=== PATIENT | female | born 1995 | race Caucasian/White ===

== ENCOUNTER 2020-09-21 16:54 | Emergency (ER) | payer OTHER, SELFPAY ==
--- NOTE | ~2020-09-21 | XR_ITS ---
EXAMINATION: XR foot LT min 3V EXAM DATE: 09/21/2020 17:51 INDICATION: Inversion injury, left metatarsal pain. Initial encounter. TECHNIQUE: Left foot dorsoplantar, lateral and oblique projections obtained and reviewed. There is n o prior study for comparison. FINDINGS: Tiny sliver-like density at the base of the left 5th metatarsal bone, age-indeterminate avu lsion injury. Please check for point tenderness. IMPRESSION: Age-indeterminate tiny left 5th metatarsal base avulsion. Reviewed, dictated and finalized at location A.
[2020-09-21 17:25] VITALS: BP 124/71; PULSE 95; RESP 18; TEMP 37; O2SAT 99
--- NOTE | 2020-09-21 18:29 | ED.GENADULT ---
HPI - General Adult General Chief complaint: Extremity Injury, Lower Stated complaint: left foot/ankle injury Time Seen by Provider: 09/21/20 18:29 Source: patient and RN notes reviewed Mode of arrival: wheelchair Limitations: no limitations History of Present Illness HPI narrative: 24-year-old female presents today with complaints of left foot pain and swelling for the past 2 hours. Cynthia reports walking into the kitchen, slipped on spilled liquid causing her to fall bending LT leg and landing on LT foot. Tylenol prior to arrival without relief. Hurts to bear weight. No radiation of pain. No numbness, tingling, or loss of mobility. Exacerbating factor applying weight and certain movement. Denies inability to bear weight. Denies discoloration. Denies suspect foreign body. LMP unknown due to Depo-Provera injections. Denies high fever. The patient reports she have not been diagnosed with COVID-19. The patient reports she is not waiting for the results of a COVID-19 lab test. The patient reports she do not have chills, weakness, or fatigue. The patient reports she do not have a new or worsening cough or shortness of breath. Denies chest pain. The patient reports she do not have any rhinorrhea, congestion, sore throat, loss of taste or smell, nausea, vomiting, abdominal pain, and diarrhea. Tolerating po intake well. Denies recent traveling. Denies concerns for COVID-19 or exposures been home with limited outdoor exposure except for essential household needs, work, and return home. At this time, patient is not suspected of having COVID-19. Some parts of this dictation were generated by voice recognition software and may contain typographical and/or grammatical inaccuracies. Related Data Home Medications Medication Instructions Recorded Confirmed medroxyprogesterone 150 mg IM USEASDIRECTD 09/21/20 09/23/20 Allergies Allergy/AdvReac Type Severity Reaction Status Date / Time amoxicillin AdvReac Intermediate emesis Verified 09/21/20 17:45 Review of Systems Review of Systems: Narrative: CONSTITUTIONAL: Denies fever, chills, sweats. EYES: Denies visual changes, redness, discharge. ENT: Denies rhinorrhea, congestion, sore throat, otalgia. CARDIOVASCULAR: Denies chest pain, palpitations, edema. RESPIRATORY: Denies dyspnea, wheezing, cough. GASTROINTESTINAL: Denies abdominal pain, nausea, vomiting, diarrhea. SKIN: Denies rash or itching. MUSCULOSKELETAL: Denies acute back pain or myalgia. Complains of pain and swelling to left foot. NEUROLOGIC: Denies numbness or focal weakness. PSYCHIATRIC: Denies anxiety or depression. All other systems reviewed are negative, except as documented in HPI and below. 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 There is no relevant family history pertinent to the presenting complaint. Exam Narrative: Exam Narrative: GENERAL: This is a well-nourished, well-developed patient, in no apparent distress. Ambulates with a limp favoring left lower extremity. HEAD: Normocephalic, atraumatic. EYES:
== END 2020-09-21 18:55 | disposition home or self-care (01) ==
PROVIDERS: Emergency Provider Nurse Practitioner Family; PCP Family Medicine
DX: S92.352A Displaced fracture of fifth metatarsal bone, left foot, initial encounter for closed fracture (principal); W01.0XXA Fall on same level from slipping, tripping and stumbling without subsequent striking against object, initial encounter
CPT/HCPCS: 73630; 99204; G0463

== ENCOUNTER 2020-10-30 06:37 | Outpatient (CLI) | payer OTHER, SELFPAY ==
--- NOTE | ~2020-10-30 | MR_ITS ---
EXAMINATION: MR foot LT wo con DATE: 10/30/2020 08:18 INDICATION: Left foot Lisfranc injury with left foot pain TECHNIQUE: Magnetic resonance imaging (MRI) of the left fore/mid foot was performed without intraveno us contrast. Sequences included sagittal T1-weighted FSE, sagittal fluid sensitive FSE STIR, coronal PD-weighted FS FSE, coronal T1-weighted FSE, axial PD-weighted FS FSE, and axial PD-weighted FSE. COMPARISON: Left foot radiographs dated 10/14/2020 FINDINGS: Minimally displaced comminuted intra-articular fracture at the base of the fourth metatarsal. Additio nal intra-articular fractures with small minimally displaced fragments at the plantar base of the fir st, second and third metatarsals. Nondisplaced small intra-articular fracture fragment at the dorsal, distal lateral corner of the medial cuneiform. Marrow edema at the base of the fifth metatarsal and in the cuboid without evident fracture lines consistent with bone contusions. The Lisfranc ligament c omplex including both the dorsal and plantar component appears normal. The collateral ligament comple x at the metatarsophalangeal joints are normal. The deep and superficial deltoid ligaments and spring ligament complex are normal. The anterior talofibular ligament, anterior inferior tibiofibular ligam ent and visualized proximal portion of the calcaneal fibular ligament are normal. The posterior stabi lizing ligaments of the lateral ankle are excluded from the [id number]. Visualized portions of the flexor and extensor tendons are normal. Prominent fatty atrophy of the intrinsic musculature of the foot with diffuse mild increased fluid signal. Mild osteoarthritis at the ankle and first metatarsoph alangeal joints. Physiologic amount fluid in the joint spaces. No bursitis, tenosynovitis or other ab normal fluid collections. IMPRESSION: 1. Multiple minimally displaced intra-articular fractures involving the base of the first-fourth meta tarsals, juxtaposed small nondisplaced fracture at the distal dorsal lateral corner of the medial cun eiform and bone contusions without discrete fracture at the cuboid and base of the fifth metatarsal. 2. Marked fatty atrophy of the intrinsic musculature of the foot which is of indeterminate etiology. Reviewed, dictated and finalized at location A. IMPRESSION: 1. Multiple minimally displaced intra-articular fractures involving the base of the first-fourth metatarsals, juxtaposed small nondisplaced fracture at the di stal dorsal lateral corner of the medial cuneiform and bone contusions without discrete fracture at the cuboid and base of the fifth metatarsal. 2. Marked fatty atrophy of the intrinsic musculature of the foot which is of in determinate etiology.
== END 2020-10-30 06:38 | disposition home or self-care (01) ==
PROVIDERS: PCP Family Medicine; Visit Provider Podiatrist Foot & Ankle Surgery
DX: S92.342A Displaced fracture of fourth metatarsal bone, left foot, initial encounter for closed fracture (principal)
CPT/HCPCS: 73718